=== PATIENT | male | born 1960 | race Caucasian/White ===

== ENCOUNTER 2022-10-30 04:46 | Emergency (ER) | payer BC, OTHER ==
[2022-10-30] MEDS: Nitrofurantoin Monohydrate/Macrocrystalline 100 MG Cap PO ONE (05:59)
== END 2022-10-30 06:22 | disposition home or self-care (01) ==
LOC: KA.ED 04:46
DX: N30.00 Acute cystitis without hematuria (principal); Z79.899 Other long term (current) drug therapy
CPT/HCPCS: 51702; 51798; 81001; 87086; 87088; 99283; A9270-GY

== ENCOUNTER 2022-10-31 09:58 | Emergency (ER) | payer OTHER ==
[2022-10-31] MEDS: Phenazopyridine 100 MG Tab PO ONE (11:00)
[2022-10-31] MEDS: cefTRIAXone 1 GM Vial IM ONE (12:30)
[2022-10-31] MEDS: Phenazopyridine 100 MG Tab PO PRN (12:40)
== END 2022-10-31 12:45 | disposition home or self-care (01) ==
LOC: KA.ED 09:58
DX: T83.511A Infection and inflammatory reaction due to indwelling urethral catheter, initial encounter (principal); N39.0 Urinary tract infection, site not specified
CPT/HCPCS: 81001; 96372; 99283; A9270; J0696